=== PATIENT | male | born 1950 | race Caucasian/White ===

== ENCOUNTER 2019-01-27 12:53 | Emergency (ER) | payer MEDICARE, OTHER ==
--- NOTE | 2019-01-27 13:53 | EDM.PDOC ---
ED HPI GENERAL MEDICAL PROBLEM - General Chief Complaint: Neurological Problem Stated Complaint: NEURO ISSUES Time Seen by Provider: 01/27/19 13:35 Source of Information: Reports: Patient, Family, Old Records, RN History Limitations: Reports: No Limitations - History of Present Illness INITIAL COMMENTS - FREE TEXT/NARRATIVE: 68 yo male with muscular dystrophy presents for more frequent falls and an inability to get up when he does so. Has poor balance normally, but this seems to be an abrupt worsening. No obvious neurological deficits. Sx's for the past 2 days. They called the clinic where he is being followed for his muscular dystophy and they felt that the abrupt worsening of his balance likely was not due to his md. Mr. King says his BP is running lower than usual, but he is not light-headed when he gets up. Onset: Sudden Onset Date: 01/25/19 Duration: Day(s): (2), Constant Location: Reports: Other (no pain, poor balance only) Quality: Reports: Other (no pain) Severity: Moderate Improves with: Reports: Other (feels fine when he is not walking) Worsens with: Reports: Other (ambulation) Context: Reports: Other (see HPI, no hx of HTN, hyperlipidemia or tobacca use, does have 'Pre-diabetes') Associated Symptoms: Reports: Weakness (? 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: Other (see below) (none) - Related Data Allergies Allergy/AdvReac Type Severity Reaction Status Date / Time No Known Allergies Allergy Verified 01/27/19 13:12 Home Meds: Home Meds Acetaminophen [Tylenol] 500 mg PO BEDTIME 05/10/13 [History] Melatonin 6 mg PO BEDTIME 05/10/13 [History] Citalopram Hydrobromide [Celexa] 20 mg PO DAILY 07/20/13 [History] Omeprazole Magnesium [Prilosec Otc] 20 mg PO DAILY 05/29/14 [History] Sennosides/Docusate Sodium [Senokot-S Tablet] 1 each PO BID 05/29/14 [History] Tadalafil [Cialis] 10 mg PO ASDIRECTED PRN 05/29/14 [History] Zolpidem Tartrate 10 mg PO BEDTIME 05/29/14 [History] Gabapentin [Neurontin] 300 mg PO BID 06/01/14 [History] Aspirin [Halfprin] 81 mg PO DAILY 10/23/14 [History] Tamsulosin HCl 0.4 mg PO DAILY 01/27/19 [History] Past Medical History HEENT History: Reports: Impaired Vision Cardiovascular History: Reports: Afib Respiratory History: Reports: Sleep Apnea, SOB Other Respiratory History: BiPap Gastrointestinal History: Reports: Chronic Constipation, GERD Genitourinary History: Reports: Prostate Disorder Musculoskeletal History: Reports: Back Pain, Chronic, Muscular Dystrophy Hematologic History: Reports: B12 Deficiency Oncologic (Cancer) History: Reports: Basal Cell Carcinoma, Squamous Cell Carcinoma Dermatologic History: Reports: None - Infectious Disease History Infectious Disease History: Reports: Chicken Pox - Past Surgical History Head Surgeries/Procedures: Reports: None HEENT Surgical History: Reports: Cataract Surgery Cardiovascular Surgical History: Reports: Cardiac Ablation Respiratory Surgical History: Reports: None GI Surgical History: Reports: Appendectomy Endocrine Surgical History: Reports: None Neurological Surgical History: Reports: None Musculoskeletal Surgical History: Reports: Arthroscopic Procedure, Shoulder Surgery Oncologic Surgical History: Reports: None Dermatological Surgical History: Reports: Skin Biopsy Social & Family History - Tobacco Use Smoking Status *Q: Never Smoker Second Hand Smoke Exposure: No - Caffeine Use Caffeine Use: Reports: None - Recreational Drug Use Recreational Drug Use: No ED ROS GENERAL - Review of Systems Review Of Systems: See Below Constitutional: Reports: Weakness (? mild arm weakness bilat.) HEENT: Reports: No Symptoms Respiratory: Reports: No Symptoms Cardiovascular: Reports: No Symptoms GI/Abdominal: Reports: No Symptoms : Reports: No Symptoms Musculoskeletal: Reports: No Symptoms Skin: Reports: No Symptoms Neurological: Reports: Difficulty Walking (poor balance), Gait Disturbance ( ataxic more than usual). Denies: Confusion, Dizziness, Headache, Numbness, Paresthesia, Seizure, Syncope, Tingling, Tremors, Trouble Speaking, Change in Speech Psychiatric: Reports: No Symptoms ED EXAM, NEURO - Physical Exam Exam: See Below Exam Limited By: No Limitations General Appearance: Alert, WD/WN, No Apparent Distress Eye Exam: Bilateral Eye: Normal Inspection Ears: Normal External Exam, Normal Canal, Hearing Grossly Normal Nose: Normal Inspection, No Blood Throat/Mouth: Normal Inspection, Normal Lips, Normal Oropharynx, Normal Voice, No Airway Compromise Head Exam: Atraumatic, Normocephalic Neck: Normal Inspection Respiratory/Chest: No Respiratory Distress, Lungs Clear, Normal Breath Sounds, No Accessory Muscle Use Cardiovascular: Regular Rate, Rhythm, No Edema GI/Abdominal: Normal Bowel Sounds, Soft, Non-Tender, No Distention Neurological: Alert, Normal Mood/Affect, Normal Dorsiflexion, CN II-XII Intact, Normal Plantar Flexion, No Motor/Sensory Deficits, Oriented x 3, Abnormal Finger to Nose (past pointing finger to the nose with the R hand/arm.), Difficulty Walking (unsteady) Back Exam: Normal Inspection Extremities: Normal Inspection, Normal Range of Motion, Non-Tender, No Pedal Edema Psychiatric: Normal Affect, Normal Mood Skin Exam: Warm, Dry, Intact, No Rash, Ecchymosis (scattered bruises from recent falls.) Course - Vital Signs Text/Narrative:: Walking was minimally improved after IV fluids. Last Recorded V/S: Last Vital Signs Temp 36.3 C 01/27/19 13:29 Pulse 65 01/27/19 15:02 Resp 22 H 01/27/19 15:02 BP 129/77 01/27/19 15:02 Pulse Ox 92 L 01/27/19 13:29 Orthostatic Blood Pressure [ 109/73 Standing] Orthostatic Blood Pressure [ 119/81 Sitting] Orthostatic Blood Pressure [ 122/76 Supine] - Orders/Labs/Meds Orders: Active Orders 24 hr Category Date Time Status Orthostatic Vital Signs [RC] ASDIRECTED Care 01/27/19 13:46 Active Labs: Laboratory Tests 01/27/19 01/27/19 01/27/19 Range/Units 13:53 14:06 14:06 WBC 6.2 (4.5-11.0) K/uL RBC 4.44 (4.30-5.90) M/uL Hgb 14.3 (12.0-15.0) g/dL Hct 44.1 (40.0-54.0) % MCV 99 H (80-98) fL MCH 32 H (27-31) pg MCHC 32 (32-36) % Plt Count 169 (150-400) K/uL Sodium 145 (140-148) mmol/L Potassium 4.2 (3.6-5.2) mmol/L Chloride 109 H (100-108) mmol/L Carbon Dioxide 31 (21-32) mmol/L Anion Gap 9.2 (5.0-14.0) mmol/L BUN 20 H (7-18) mg/dL Creatinine 1.6 H (0.8-1.3) mg/dL Est Cr Clr Drug Dosing 55.76 mL/min Estimated GFR (MDRD) 43 L (>60) Glucose 125 H (74-106) mg/dL Calcium 9.3 (8.5-10.1) mg/dL Troponin I 0.024 (0.000-0.056) ng/mL Urine Color Yellow (YELLOW) Urine Appearance Clear (CLEAR) Urine pH 5.5 (5.0-8.0) Ur Specific [place] 1.025 (1.008-1.030) Urine Protein Negative (NEGATIVE) mg/dL Urine Glucose (UA) Normal (NEGATIVE) mg/dL Urine Ketones Negative (NEGATIVE) mg/dL Urine Occult Blood Negative (NEGATIVE) Urine Nitrite Negative (NEGATIVE) Urine Bilirubin Negative (NEGATIVE) Urine Urobilinogen 0.2 (0.2-1.0) EU/dL Ur Leukocyte Esterase Negative (NEGATIVE) Urine RBC Not seen (0-5) Urine WBC Not seen (0-5) Ur Epithelial Cells Not seen Amorphous Sediment Few Urine Bacteria Not seen Urine Mucus Not seen Meds: Medications Discontinued Medications Generic Name Dose Route Start Last Admin Trade Name Freq PRN Reason Stop Dose Admin Lactated Ringer's 1,000 mls @ 1,000 mls/hr 01/27/19 14:55 01/27/19 15:22 Ringers, Lactated IV 01/27/19 15:54 1,000 mls/hr BOLUS ONE Administration - Radiology Interpretation Free Text/Narrative:: Head CT scan-no acute changes CT Results Date: 01/27/19 Departure - Departure Time of Disposition: 16:35 Disposition: Home, Self-Care 01 Condition: Fair Clinical Impression: Unsteady gait - Discharge Information *PRESCRIPTION DRUG MONITORING PROGRAM REVIEWED*: No *COPY OF PRESCRIPTION DRUG MONITORING REPORT IN PATIENT KAMLESH: No Instructions: Fall Prevention in the Home, Adult, [id number] Referrals: Feliciano Brian MD [Primary Care Provider] - Forms: ED Department Discharge Additional Instructions: Continue your current meds. F/U with your neurologist as you are able. Use your walker to reduce your risk of falling. Drink enough fluids so your urine is light yellow in color, not dark. Return as needed. - My Orders Last 24 Hours: My Active Orders 01/27/19 13:46 Orthostatic Vital Signs [RC] ASDIRECTED - Assessment/Plan Last 24 Hours: My Active Orders 01/27/19 13:46 Orthostatic Vital Signs [RC] ASDIRECTED
--- NOTE | 2019-01-27 14:33 | CRLCT ---
INDICATION: Balance problems. Falls TECHNIQUE: CT head without contrast. COMPARISON: None available FINDINGS: There is cerebral and cerebellar cortical atrophy with proportionate age-related ventriculomegaly. There is no mass effect or midline shift. Mild white matter hypodensities are suggestive of chronic small vessel ischemic changes. There is no loss of newton-white differentiation. There is no evidence of an acute intracranial hemorrhage. No acute calvarial fracture is seen. The visualized paranasal sinuses and mastoid air cells are clear. Post cataract surgery changes are seen. IMPRESSION: No evidence of an acute intracranial hemorrhage, mass effect or loss of newton-white differentiation. Atrophy and mild chronic small vessel ischemic changes. Dictated by Jose Bauman MD @ 01/27/2019 2:33:06 PM Please note that all CT scans at this facility use dose modulation, iterative reconstruction, and/or weight-based dosing when appropriate to reduce radiation dose to as low as reasonably achievable. Dictated by: Jose Bauman MD @ 01/27/2019 14:33:12 (Electronically Signed)
[2019-01-27] MEDS ORDERED: Lactated Ringers 1,000 ML IV ONE (14:55)
[2019-01-27 15:03] VITALS: BP 129/77; PULSE 65
== END 2019-01-27 16:51 | disposition home or self-care (01) ==
LOC: JP.ED 12:53
DX: R26.81 Unsteadiness on feet (principal); K21.9 Gastro-esophageal reflux disease without esophagitis; Z79.82 Long term (current) use of aspirin; I48.91 Unspecified atrial fibrillation; Z79.83 Long term (current) use of bisphosphonates; Z79.899 Other long term (current) drug therapy; Z79.891 Long term (current) use of opiate analgesic
CPT/HCPCS: 36415; 70450; 80048; 81001; 84484; 85027; 96360; 99284; J7120; 99282

== ENCOUNTER 2019-09-01 12:31 | Emergency (ER) | payer MEDICARE, OTHER ==
[2019-09-01 13:05] VITALS: BP 118/73; PULSE 74
--- NOTE | 2019-09-01 13:12 | EDM.PDOC ---
ED HPI GENERAL MEDICAL PROBLEM - General Chief Complaint: General Stated Complaint: MEMORY LOSS Time Seen by Provider: 09/01/19 12:55 Source of Information: Reports: Patient, Old Records, RN History Limitations: Reports: No Limitations - History of Present Illness INITIAL COMMENTS - FREE TEXT/NARRATIVE: 68 yo male had a brief period of time yesterday that he does not remember. When family discussed this with him he is able to remember bits and pieces of the conversation. Denies LORENZO or hx of TIA/CVA. Does admit to chronic, daily use of Ambien for sleep in addition to melatonin. He skipped Ambien last night and is having no issues today. Called the clinic and was told to come to the ER. Onset: Sudden Onset Date: 08/31/19 Duration: Minutes:, Resolved Prior to Arrival Location: Reports: Head Quality: Reports: Other (no pain) Severity: Mild Improves with: Reports: Other (time) Worsens with: Reports: Other (? 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) (skipped Ambien last night) - Related Data Allergies Allergy/AdvReac Type Severity Reaction Status Date / Time No Known Allergies Allergy Verified 09/01/19 12:52 Home Meds: Home Meds Acetaminophen [Tylenol] 500 mg PO BEDTIME 05/10/13 [History] Melatonin 6 mg PO BEDTIME 05/10/13 [History] Citalopram Hydrobromide [Celexa] 20 mg PO DAILY 07/20/13 [History] Omeprazole Magnesium [Prilosec Otc] 20 mg PO DAILY 05/29/14 [History] Sennosides/Docusate Sodium [Senokot-S Tablet] 1 each PO BID 05/29/14 [History] Zolpidem Tartrate 10 mg PO BEDTIME 05/29/14 [History] tadalafiL [Cialis] 10 mg PO ASDIRECTED PRN 05/29/14 [History] Gabapentin [Neurontin] 300 mg PO BID 06/01/14 [History] Aspirin [Halfprin] 81 mg PO DAILY 10/23/14 [History] Tamsulosin HCl 0.4 mg PO DAILY 01/27/19 [History] traZODone 50 mg PO BEDTIME PRN #30 tab 09/01/19 [Rx] Past Medical History HEENT History: Reports: Impaired Vision Cardiovascular History: Reports: Afib Respiratory History: Reports: Sleep Apnea, SOB Other Respiratory History: BiPap Gastrointestinal History: Reports: Chronic Constipation, GERD Genitourinary History: Reports: Prostate Disorder Musculoskeletal History: Reports: Back Pain, Chronic, Muscular Dystrophy Hematologic History: Reports: B12 Deficiency Oncologic (Cancer) History: Reports: Basal Cell Carcinoma, Squamous Cell Carcinoma Dermatologic History: Reports: None - Infectious Disease History Infectious Disease History: Reports: Chicken Pox - Past Surgical History Head Surgeries/Procedures: Reports: None HEENT Surgical History: Reports: Cataract Surgery Cardiovascular Surgical History: Reports: Cardiac Ablation Respiratory Surgical History: Reports: None GI Surgical History: Reports: Appendectomy Endocrine Surgical History: Reports: None Neurological Surgical History: Reports: None Musculoskeletal Surgical History: Reports: Arthroscopic Procedure, Shoulder Surgery Oncologic Surgical History: Reports: None Dermatological Surgical History: Reports: Skin Biopsy Social & Family History - Tobacco Use Smoking Status *Q: Never Smoker - Caffeine Use Caffeine Use: Reports: None ED ROS GENERAL - Review of Systems Review Of Systems: See Below Constitutional: Reports: No Symptoms HEENT: Reports: No Symptoms Respiratory: Reports: No Symptoms Endocrine: Reports: No Symptoms GI/Abdominal: Reports: Constipation (mild) : Reports: No Symptoms Musculoskeletal: Reports: No Symptoms Skin: Reports: No Symptoms Neurological: Reports: Other (amnesia) ED EXAM, GENERAL - Physical Exam Exam: See Below Exam Limited By: No Limitations General Appearance: Alert, WD/WN, No Apparent Distress Eye Exam: Bilateral Eye: Normal Inspection Ears: Normal External Exam, Normal Canal, Hearing Grossly Normal, Normal TMs Ear Exam: Bilateral Ear: Auricle Normal, Canal Normal, TM normal Nose: Normal Inspection, No Blood Throat/Mouth: Normal Inspection, Normal Lips, Normal Oropharynx, Normal Voice, No Airway Compromise Head: Atraumatic, Normocephalic Neck: Normal Inspection Respiratory/Chest: No Respiratory Distress, Lungs Clear, Normal Breath Sounds, No Accessory Muscle Use Cardiovascular: Regular Rate, Rhythm, No Edema GI/Abdominal: Normal Bowel Sounds, Soft, Non-Tender, No Distention Back Exam: Normal Inspection. No: CVA Tenderness (R), CVA Tenderness (L) Extremities: Normal Inspection, Normal Range of Motion, Non-Tender, No Pedal Edema Neurological: Alert, Oriented, CN II-XII Intact, Normal Cognition, No Motor/ Sensory Deficits Psychiatric: Normal Affect, Normal Mood Skin Exam: Warm, Dry, Intact, Normal Color, No Rash Course - Vital Signs Last Recorded V/S: Last Vital Signs Temp 36.3 C 09/01/19 13:04 Pulse 74 09/01/19 13:04 Resp 14 09/01/19 13:04 BP 118/73 09/01/19 13:04 Pulse Ox 98 09/01/19 13:04 Departure - Departure Time of Disposition: 13:15 Disposition: Home, Self-Care 01 Condition: Good Clinical Impression: Transient amnesia, Chronic insomnia Constipation Qualifiers: Constipation type: slow transit constipation Qualified Code(s): K59.01 - Slow transit constipation - Discharge Information *PRESCRIPTION DRUG MONITORING PROGRAM REVIEWED*: Not Applicable *COPY OF PRESCRIPTION DRUG MONITORING REPORT IN PATIENT KAMLESH: Not Applicable Prescriptions: traZODone 50 mg PO BEDTIME PRN #30 tab PRN Reason: Insomnia Referrals: Feliciano Brian MD [Primary Care Provider] - Additional Instructions: Hold your Ambien. Take trazodone in its place to help you with sleep. Hold your Senokot, instead use Miralax(generic) twice daily to keep your bowels moving. F/ U with your provider next week for recheck. Sepsis Event Note - Evaluation Sepsis Screening Result: No Definite Risk - Focused Exam Vital Signs: Vital Signs Temp Pulse Resp BP Pulse Ox 09/01/19 13:04 36.3 C 74 14 118/73 98 Date Exam was Performed: 09/01/19 Time Exam was Performed: 13:07
== END 2019-09-01 13:20 | disposition home or self-care (01) ==
LOC: JP.ED 12:31
DX: R41.3 Other amnesia (principal); F51.04 Psychophysiologic insomnia; K59.01 Slow transit constipation; I48.91 Unspecified atrial fibrillation; K21.9 Gastro-esophageal reflux disease without esophagitis; Z79.899 Other long term (current) drug therapy
CPT/HCPCS: 99283

== ENCOUNTER 2020-12-23 06:51 | Day surgery (SDC) | payer MEDICARE ==
[2020-12-23] MEDS ORDERED: Midazolam 1 MG/ML 2 ML SDV ONE (07:20)
[2020-12-23] MEDS ORDERED: fentaNYL 100 MCG/2 ML SDV ONE (07:20)
[2020-12-23] MEDS ORDERED: Propofol 200 MG/20 ML SDV ONE (07:21)
[2020-12-23] MEDS ORDERED: Sodium Chloride 0.9% 1,000 ML IV SCH (07:30)
[2020-12-23 10:00] VITALS: BP 136/54; PULSE 65
--- NOTE | 2020-12-23 19:09 | OR ---
DATE OF PROCEDURE: 12/23/2020 SURGEON: Chevy New MD PROCEDURE: Colonoscopy. FINDINGS: Incomplete colonoscopy due to poor colon prep. COMPLICATIONS: None. MANAGER USER EXPERIENCE: None. ANESTHESIA: MAC. PREOPERATIVE DIAGNOSIS: Screening colonoscopy. POSTOPERATIVE DIAGNOSIS: Screening colonoscopy. RISKS: Risks, benefits, alternatives, and limitations including, but not limited to infection, bleeding, perforation, false positives, and false negatives were explained to the patient who wished to proceed. PROCEDURE IN DETAIL: The patient was placed in left lateral decubitus position. The colonoscope was introduced and advanced to approximately the level of transverse colon. The procedure was terminated at this point due to poor colon prep with a large amount of solid and liquid stool remaining. No abnormalities were noted. The patient tolerated the procedure well. The patient will be scheduled for repeat colonoscopy with longer prep. Chevy New MD /[id number]
== END 2020-12-23 10:36 | disposition home or self-care (01) ==
LOC: JP.SDS 06:51
PROVIDERS: ATTEND Surgery
DX: Z12.11 Encounter for screening for malignant neoplasm of colon (principal); G47.33 Obstructive sleep apnea (adult) (pediatric); I48.91 Unspecified atrial fibrillation; E78.5 Hyperlipidemia, unspecified; N18.30 Chronic kidney disease, stage 3 unspecified; Z88.8 Allergy status to other drugs, medicaments and biological substances
CPT/HCPCS: G0121; J2250; J2704; J3010; J7030

== ENCOUNTER 2021-01-30 07:17 | Day surgery (SDC) | payer MEDICARE ==
[2021-01-30] MEDS ORDERED: Sodium Chloride 0.9% 1,000 ML IV SCH (07:30)
[2021-01-30] MEDS ORDERED: Propofol 200 MG/20 ML SDV ONE (07:40)
[2021-01-30] MEDS ORDERED: fentaNYL 100 MCG/2 ML SDV ONE (07:40)
[2021-01-30] MEDS ORDERED: Midazolam 1 MG/ML 2 ML SDV ONE (08:57)
[2021-01-30 10:31] VITALS: BP 110/64; PULSE 64
--- NOTE | 2021-01-30 13:16 | OR ---
DATE OF PROCEDURE: 01/30/2021 SURGEON: Chevy New MD PROCEDURE: Colonoscopy. FINDINGS: Marginal colon prep. COMPLICATIONS: None. AGENCY DEVELOPMENT MANAGER: None. ANESTHESIA: MAC. PREOPERATIVE DIAGNOSIS: Screening colonoscopy. POSTOPERATIVE DIAGNOSIS: Screening colonoscopy. RISKS: Risks, benefits, alternatives, and limitations including but not limited to infection, bleeding, perforation, false positives, and false negatives were explained to the patient and he wished to proceed. PROCEDURE IN DETAIL: The patient was placed in left lateral decubitus position. Digital rectal exam was performed without abnormality. Scope was introduced and advanced atraumatically to the ileocecal valve. A photo was taken of the appendiceal orifice. Scope was brought back to the ascending, transverse, descending colon, and retroflexed. No evidence of old or new blood. No masses. No polyps. The prep was marginal with an approximately 85% to 90% of the luminal surface could be seen. Greater than 8 minutes was spent removing the scope. The patient tolerated the procedure well. Chevy New MD /[id number]
== END 2021-01-30 10:32 | disposition home or self-care (01) ==
LOC: JP.SDS 07:17
PROVIDERS: ATTEND Surgery
DX: Z12.11 Encounter for screening for malignant neoplasm of colon (principal); E11.22 Type 2 diabetes mellitus with diabetic chronic kidney disease; N18.9 Chronic kidney disease, unspecified; G47.33 Obstructive sleep apnea (adult) (pediatric); I48.91 Unspecified atrial fibrillation; Z88.8 Allergy status to other drugs, medicaments and biological substances
CPT/HCPCS: G0121; J2250; J2704; J3010; J7030

== ENCOUNTER 2021-02-12 19:29 | Emergency (ER) | payer MEDICARE ==
[2021-02-12] MEDS ORDERED: Bacitracin Oint 1 GM U/D Packet TOP ONE (19:53)
[2021-02-12 19:54] VITALS: BP 108/67; PULSE 67
--- NOTE | 2021-02-12 19:56 | EDM.PDOC ---
ED HPI GENERAL MEDICAL PROBLEM - General Chief Complaint: Laceration Stated Complaint: CUT ABOVE RIGHT EYE Time Seen by Provider: 02/12/21 19:51 Source of Information: Reports: Patient History Limitations: Reports: No Limitations - History of Present Illness INITIAL COMMENTS - FREE TEXT/NARRATIVE: chief complaint: laceration to right eye lid and eyebrow This is a 70 year old male presents to the ER for laceration of right eyelid and eye brow. He reports he has muscular dystrophy and fall a lot. Prior to arrival fell and cut his right eye. reports no other injury, no LOC, no pain in cheek, right eye or right forehead. immunizations are up to date. Onset: Today Duration: Hour(s):, Constant Location: Reports: Face (right eyelid and eyebrow) Quality: Reports: Other (denies pain) Severity: Mild Improves with: Reports: None Worsens with: Reports: None Context: Reports: Other (fall at home) Associated Symptoms: Reports: No Other Symptoms Treatments [employer]ENDER: Reports: Dressing(s) left eye lid Pain Score (Numeric/FACES): 4 - Related Data Allergies Allergy/AdvReac Type Severity Reaction Status Date / Time zolpidem [From Ambien] AdvReac Confusion Verified 02/12/21 19:54 Home Meds: Home Meds Acetaminophen [Tylenol] 500 mg PO BEDTIME 05/10/13 [History] Melatonin 10 mg PO BEDTIME 05/10/13 [History] Citalopram Hydrobromide [Celexa] 20 mg PO DAILY 07/20/13 [History] Omeprazole Magnesium [Prilosec Otc] 20 mg PO DAILY 05/29/14 [History] Aspirin [Halfprin] 81 mg PO DAILY 10/23/14 [History] Tamsulosin HCl 0.4 mg PO DAILY 01/27/19 [History] traZODone 50 mg PO BEDTIME PRN #30 tab 09/01/19 [Rx] Cholecalciferol (Vitamin D3) [Vitamin D] 2,000 unit PO DAILY 06/12/20 [History] Cyanocobalamin (Vitamin B-12) [Vitamin B-12] 2,000 mcg PO DAILY 10/17/20 [History] Pseudoephedrine HCl 30 mg PO DAILY PRN 10/17/20 [History] Rosuvastatin Calcium 5 mg PO DAILY 10/17/20 [History] Vit C/E/Zn/Coppr/Lutein/Zeaxan [Preservision Areds 2 Softgel] 1 each PO BID 10/17/20 [History] Finasteride 5 mg PO DAILY 12/18/20 [History] Past Medical History HEENT History: Reports: Cataract, Impaired Vision Cardiovascular History: Reports: Afib Respiratory History: Reports: Sleep Apnea, SOB Other Respiratory History: BiPap Gastrointestinal History: Reports: Chronic Constipation, GERD Genitourinary History: Reports: Prostate Disorder Musculoskeletal History: Reports: Back Pain, Chronic, Muscular Dystrophy Neurological History: Reports: CVA Psychiatric History: Reports: Anxiety Hematologic History: Reports: B12 Deficiency Oncologic (Cancer) History: Reports: Basal Cell Carcinoma, Squamous Cell Carcinoma Dermatologic History: Reports: Benign Melanoma, Melanoma, Psoriasis - Infectious Disease History Infectious Disease History: Reports: Chicken Pox, Measles, Mumps - Past Surgical History Head Surgeries/Procedures: Reports: None HEENT Surgical History: Reports: Cataract Surgery, Other (See Below) Other HEENT Surgeries/Procedures: parotid gland tumor removal, Cardiovascular Surgical History: Reports: Cardiac Ablation Respiratory Surgical History: Reports: None GI Surgical History: Reports: Appendectomy, Colonoscopy Male Surgical History: Reports: None Neurological Surgical History: Reports: None Musculoskeletal Surgical History: Reports: Amputation, Arthroscopic Procedure, Shoulder Surgery Oncologic Surgical History: Reports: None Dermatological Surgical History: Reports: Skin Biopsy Social & Family History - Caffeine Use Caffeine Use: Reports: Soda - Living Situation & Occupation 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) ED ROS GENERAL - Review of Systems Review Of Systems: See Below Constitutional: Reports: Other (lacerations to right eye) HEENT: Reports: Other (right eye lid and eyebrow lacerations) Respiratory: Reports: No Symptoms Cardiovascular: Reports: No Symptoms Musculoskeletal: Reports: No Symptoms Skin: Reports: Wound (right eye lacerations) Neurological: Reports: Pre-Existing Deficit Psychiatric: Reports: No Symptoms Hematologic/Lymphatic: Reports: No Symptoms Immunologic: Reports: No Symptoms ED EXAM, SKIN/RASH Exam: See Below Exam Limited By: No Limitations General Appearance: Alert, WD/WN, No Apparent Distress Eye Exam: Right Eye: Other (laceration x 2 eyelid and eyebrow) Ears: Normal External Exam Nose: Normal Inspection Throat/Mouth: Normal Inspection Head: Other (right eyelid and right eyebrow lacerations) Neck: Normal Inspection, Supple, Non-Tender, Full Range of Motion Respiratory/Chest: No Respiratory Distress Extremities: Normal Inspection Neurological: Alert, Oriented, Other (Muscular Dystrophy) Psychiatric: Normal Affect, Normal Mood Skin: Warm, Dry, Wound/Incision (right eyebrow and right eyelid) Location, Skin: Face Characteristics: Linear Lymphatic: No Adenopathy ED SKIN PROCEDURES - Laceration/Wound Repair Right Lower Other Appearance: Subcutaneous, Linear, Clean, Other (right upper eyelid) Distal NVT: Neuro & Vascular Intact, No Tendon Injury Anesthetic Type: Local Local Anesthesia - Lidocaine (Xylocaine): 1% Plain Local Anesthetic Volume: 2cc Skin Prep: Chlorhexidine (Hibiciens), Saline Closed with: Sutures Lac/Wound length In cm: 2 Suture Size: 5-0 # of Sutures: 6 Suture Type: Prolene, Interrupted, Simple Tetanus Status Addressed: Yes (Tdap given at today's ER visit) Complications: No Right Upper Other Appearance: Subcutaneous, Linear, Clean, Other (right lower eyelid) Distal NVT: Neuro & Vascular Intact, No Tendon Injury Anesthetic Type: Local Local Anesthesia - Lidocaine (Xylocaine): 1% Plain Local Anesthetic Volume: 1cc Skin Prep: Chlorhexidine (Hibiciens), Saline Exploration/Debridement/Repair: Wound Explored Closed with: Sutures Lac/Wound length In cm: 1 Suture Size: 5-0 # of Sutures: 3 Suture Type: Prolene, Interrupted, Simple Tetanus Status Addressed: Yes Complications: No Course - Vital Signs Last Recorded V/S: Last Vital Signs Temp 97.2 F 02/12/21 19:58 Pulse 67 02/12/21 19:58 Resp 16 02/12/21 19:58 BP 108/67 02/12/21 19:58 Pulse Ox 98 02/12/21 19:58 - Orders/Labs/Meds Orders: Active Orders 24 hr Category Date Time Status Vaccines to be Administered [RC] PER UNIT ROUTINE Care 02/12/21 20:22 Active Meds: Medications Discontinued Medications Generic Name Dose Route Start Last Admin Trade Name Freq PRN Reason Stop Dose Admin Bacitracin 1 dose 02/12/21 19:53 02/12/21 20:19 Bacitracin Oint 1 Gm U/D Packet TOP 02/12/21 19:54 1 dose ONETIME ONE Administration Diphtheria/Tetanus/Acell Pertussis 0.5 ml 02/12/21 20:21 02/12/21 20:31 Diphtheria,Pertussis(Acell),Tetanus Vaccine 0.5 Ml Syringe IM 02/12/21 20:22 0.5 ml .ONCE ONE Administration Lidocaine HCl 5 ml 02/12/21 19:52 02/12/21 20:19 Lidocaine 1% 5 Ml Sdv INJECT 02/12/21 19:53 5 ml ONETIME ONE Administration - Re-Assessments/Exams Free Text/Narrative Re-Assessment/Exam: 02/12/21 20:37 laceration repair to right eyelid lacerations x 2 wound care discussed follow up discussed Tdap given in ER Mr. King agrees with plan of care. Departure - Departure Time of Disposition: 20:38 Disposition: Home, Self-Care 01 Condition: Good Clinical Impression: Laceration, eyelid, right Qualifiers: Encounter type: initial encounter Qualified Code(s): S01.111A - Laceration w ithout foreign body of right eyelid and periocular area, initial encounter Laceration of right eyebrow Qualifiers: Encounter type: initial encounter Qualified Code(s): S01.111A - Laceration without foreign body of right eyelid and periocular area, initial encounter - Discharge Information *PRESCRIPTION DRUG MONITORING PROGRAM REVIEWED*: No *COPY OF PRESCRIPTION DRUG MONITORING REPORT IN PATIENT KAMLESH: No Instructions: Laceration Care, Adult, [id number] Referrals: Feliciano Brian MD [Primary Care Provider] - Forms: ED Department Discharge Care Plan Goals: Laceration of right eyebrow and right eyelid -sutures X6 and sutures X3 -suture removal in 5 to 7 days -monitor for signs of infection -return to ER for any signs of infection-redness, pain, discharge, not healing, edema or any concerns. Sepsis Event Note (ED) - Focused Exam Vital Signs: Vital Signs Temp Pulse Resp BP Pulse Ox 02/12/21 19:58 97.2 F 67 16 108/67 98 02/12/21 19:53 97.2 F 67 16 108 98 - Problem List & Annotations (1) Laceration of right eyebrow SNOMED Code(s): 70669458902828363 Code(s): S01.111A - LACERATION W/O FB OF RIGHT EYELID AND PERIOCULAR AREA, INIT Status: Acute Priority: High Current Visit: Yes Qualifiers: Encounter type: initial encounter Qualified Code(s): S01.111A - Laceration without foreign body of right eyelid and periocular area, initial encounter (2) Laceration, eyelid, right SNOMED Code(s): 63549636363544072 Code(s): S01.111A - LACERATION W/O FB OF RIGHT EYELID AND PERIOCULAR AREA, INIT Status: Acute Priority: High Current Visit: Yes Qualifiers: Encounter type: initial encounter Qualified Code(s): S01.111A - Laceration without foreign body of right eyelid and periocular area, initial encounter - Problem List Review Problem List Initiated/Reviewed/Updated: Yes - My Orders Last 24 Hours: My Active Orders 02/12/21 20:22 Vaccines to be Administered [RC] PER UNIT ROUTINE - Assessment/Plan Last 24 Hours: My Active Orders 02/12/21 20:22 Vaccines to be Administered [RC] PER UNIT ROUTINE Plan: Laceration of right eyebrow and right eyelid -sutures X6 and sutures X3 -suture removal in 5 to 7 days -apply bacitracin ointment or antibiotic ointment daily til healed -monitor for signs of infection -return to ER for any signs of infection-redness, pain, discharge, not healing, edema or any concerns.
[2021-02-12] MEDS ORDERED: Diphtheria,Pertussis(Acell),Tetanus Vaccine 0.5 ML Syringe IM ONE (20:21)
== END 2021-02-12 20:46 | disposition home or self-care (01) ==
LOC: JP.ED 19:29
DX: S01.111A Laceration without foreign body of right eyelid and periocular area, initial encounter (principal); K21.9 Gastro-esophageal reflux disease without esophagitis; Z79.899 Other long term (current) drug therapy; Z86.73 Personal history of transient ischemic attack (TIA), and cerebral infarction without residual deficits; Z79.82 Long term (current) use of aspirin; Z23 Encounter for immunization; W26.8XXA Contact with other sharp object(s), not elsewhere classified, initial encounter
CPT/HCPCS: 12013; 90471; 90715; 99282-25

== ENCOUNTER 2022-05-23 02:24 | Emergency (ER) | payer MEDICARE ==
[2022-05-23] MEDS ORDERED: Lidocaine 1% with EPINEPHrine 1:100,000 50 ML MDV INFILT STA (02:30)
[2022-05-23 02:36] VITALS: BP 116/83; PULSE 95
[2022-05-23] MEDS ORDERED: Bacitracin Oint 1 GM U/D Packet TOP ONE (03:06)
== END 2022-05-23 03:24 | disposition home or self-care (01) ==
LOC: JP.ED 02:24
DX: S51.012A Laceration without foreign body of left elbow, initial encounter (principal); Z88.8 Allergy status to other drugs, medicaments and biological substances; Z79.899 Other long term (current) drug therapy; Z79.82 Long term (current) use of aspirin; Z90.49 Acquired absence of other specified parts of digestive tract; W18.39XA Other fall on same level, initial encounter
CPT/HCPCS: 12002; 99282

== ENCOUNTER 2022-05-23 21:09 | Emergency (ER) | payer MEDICARE ==
[2022-05-23 21:23] VITALS: BP 137/77; PULSE 80
== END 2022-05-23 22:24 | disposition home or self-care (01) ==
LOC: JP.ED 21:09
DX: L03.114 Cellulitis of left upper limb (principal); Z79.899 Other long term (current) drug therapy; Z79.82 Long term (current) use of aspirin; Z90.49 Acquired absence of other specified parts of digestive tract; W19.XXXA Unspecified fall, initial encounter
CPT/HCPCS: 99283

== ENCOUNTER 2022-05-28 02:04 | Emergency (ER) | payer MEDICARE ==
[2022-05-28 02:16] VITALS: BP 149/91; PULSE 64
== END 2022-05-28 03:56 | disposition home or self-care (01) ==
LOC: JP.ED 02:04
DX: S70.02XA Contusion of left hip, initial encounter (principal); S70.12XA Contusion of left thigh, initial encounter; I48.91 Unspecified atrial fibrillation; K21.9 Gastro-esophageal reflux disease without esophagitis; Z86.73 Personal history of transient ischemic attack (TIA), and cerebral infarction without residual deficits; Z88.8 Allergy status to other drugs, medicaments and biological substances; Z79.82 Long term (current) use of aspirin; Z79.899 Other long term (current) drug therapy; W18.30XA Fall on same level, unspecified, initial encounter
CPT/HCPCS: 72192; 99284

== ENCOUNTER → 2022-09-08 | Day surgery (SDC) | payer MEDICARE ==
[~2022-09-08] MED LIST: Acetaminophen 500 MG Tab PO ONE; Bacitracin Oint 1 GM U/D Packet ONE; Bupivacaine 0.5% 50 ML MDV ONE; Dextrose 5%-Lactated Ringers 1,000 ML IV SCH; Ketamine 25 MG in Sodium Chloride 0.9% 19.75 ML IV SCH; Ketamine 500 MG/5 ML MDV IV SCH; Lidocaine 1% with EPINEPHrine 1:100,000 50 ML MDV ONE; Linezolid 600 MG in Premix Bag 1 BAG IV ONE; Linezolid 600 MG/300 ML Premix Bag IRR ONE; Midazolam 1 MG/ML 2 ML SDV ONE; Propofol 200 MG/20 ML SDV ONE; fentaNYL 100 MCG/2 ML SDV ONE
[2022-09-08 10:04] VITALS: BP 108/65; PULSE 54
== END ==
LOC: JP.SDS 05:32
PROVIDERS: ATTEND Surgery
DX: L72.0 Epidermal cyst (principal); L08.89 Other specified local infections of the skin and subcutaneous tissue; M79.89 Other specified soft tissue disorders; G47.33 Obstructive sleep apnea (adult) (pediatric); I48.91 Unspecified atrial fibrillation; R73.03 Prediabetes; N18.30 Chronic kidney disease, stage 3 unspecified; Z88.8 Allergy status to other drugs, medicaments and biological substances
CPT/HCPCS: 11422; 11423; 12042; 87070; 87075; 87077; 87186; 87205; 88304; A9270; J2020; J2250; J2704; J3010; J3490; J7121

== ENCOUNTER 2022-11-23 02:24 | Inpatient (IN) | payer MEDICARE ==
[2022-11-23] MEDS ORDERED: Sodium Chloride 0.9% 1,000 ML IV SCH (02:45)
[2022-11-23 02:46] LABS: BASOPHILS ABSOLUTE AUTO 0.04 K/uL (0.00-0.10); BASOPHILS PERCENT AUTO 0.5 % (0.1-1.3); EOSINOPHILS ABSOLUTE AUTO 0.07 K/uL (0.00-0.40); EOSINOPHILS PERCENT AUTO 0.8 % (0.0-5.4); HEMATOCRIT 42.9 % (38.4-49.7); HEMOGLOBIN 14.3 g/dL (12.9-16.9); IMMATURE GRAN ABSOLUTE AUTO 0.03 K/uL (0.00-0.23); IMMATURE GRAN PERCENT AUTO 0.3 % (0.0-0.7); LYMPHOCYTES ABSOLUTE AUTO 1.03 K/uL (0.8-3.3); LYMPHOCYTES PERCENT AUTO 11.9 % (11.4-47.7); MEAN CORPUSCULAR HEMOGLOBIN 33.6 pg (31.6-35.5); MEAN CORPUSCULAR HGB CONC 33.3 g/dL (31.6-35.5); MEAN CORPUSCULAR VOLUME 100.9 fL (81.4-99.0); MONOCYTES ABSOLUTE AUTO 0.51 K/uL (0.20-0.90); MONOCYTES PERCENT AUTO 5.9 % (3.3-12.6); NEUTROPHILS ABSOLUTE AUTO 6.94 K/uL (1.0-7.6); NEUTROPHILS PERCENT AUTO 80.6 % (40.0-78.1); PLATELET COUNT,PLT 154 K/uL (130-375); RED BLOOD CELL COUNT 4.25 M/uL (4.14-5.76); WHITE BLOOD CELL COUNT,WBC 8.6 K/uL (3.2-11.0)
[2022-11-23 03:03] LABS: ALANINE AMINOTRANSFERASE,ALT 21 U/L (12-78); ALBUMIN 3.4 g/dL (3.4-5.0); ALKALINE PHOSPHATASE 72 U/L (46-116); ANION GAP 14.5 mmol/L (5.0-14.0); ASPARTATE AMNIOTRANSFERASE,AST 26 U/L (15-37); BILIRUBIN TOTAL 0.8 mg/dL (0.2-1.0); BLOOD UREA NITROGEN,BUN 16 mg/dL (7-18); CALCIUM 9.5 mg/dL (8.5-10.1); CARBON DIOXIDE,CO2 27 mmol/L (21-32); CHLORIDE,CL 105 mmol/L (100-108); CREATININE 1.3 mg/dL (0.8-1.3); EST CRCL DRUG DOSING (CG) 65.84 mL/min; ESTIMATED GFR 59 mL/min (>60); GLUCOSE RANDOM 153 mg/dL (74-106); POTASSIUM,K 3.5 mmol/L (3.6-5.2); PROTEIN TOTAL,TP 6.8 g/dL (6.4-8.2); SODIUM,NA 143 mmol/L (140-148)
[2022-11-23] MEDS ORDERED: Meropenem 1 GM in Sodium Chloride 0.9% 100 ML IV ONE (03:38)
[2022-11-23] MEDS ORDERED: LORazepam 2 MG/ML SDV IVPUSH ONE (03:43)
[2022-11-23 03:48] LABS: APPEARANCE,URINE CLEAR (CLEAR); BILIRUBIN,URINE NEGATIVE (NEGATIVE); COLOR,URINE YELLOW (YELLOW); GLUCOSE,URINE NEGATIVE (NEGATIVE); KETONES,URINE NEGATIVE (NEGATIVE); LEUKOCYTE ESTERASE,URINE NEGATIVE (NEGATIVE); NITRITE,URINE NEGATIVE (NEGATIVE); OCCULT BLOOD,URINE NEGATIVE (NEGATIVE); PROTEIN,URINE NEGATIVE (NEGATIVE); UROBILINOGEN,URINE 0.2 EU/dL (0.2-1.0)
[2022-11-23] MEDS ORDERED: Lidocaine 2% Jelly 10 ML Urojet MUCMEM ONE (04:00)
[2022-11-23] MEDS ORDERED: Albuterol/Ipratropium 3.0-0.5 MG/3 ML Neb Soln NEB ONE (04:20)
[2022-11-23 04:57] LABS: RBC,URINE 0-5 (0-5); WBC,URINE 0-5 (0-5)
[2022-11-23 04:58] LABS: AMORPHOUS SEDIMENT,URINE NOT SEEN; BACTERIA,URINE FEW; EPITHELIAL CELLS,URINE RARE; MUCUS,URINE NOT SEEN
[2022-11-23] MEDS ORDERED: Magnesium Hydroxide 400 MG/5 ML Susp 30 ML Cup PO PRN (05:07)
[2022-11-23] MEDS ORDERED: Enoxaparin 40 MG/0.4 ML Syringe SUBCUT SCH (05:07)
[2022-11-23] MEDS ORDERED: Potassium Chloride 10 MEQ in Premix Bag 1 BAG IV SCH (05:07)
[2022-11-23] MEDS ORDERED: Ondansetron 4 MG/2 ML SDV IV PRN (05:07)
[2022-11-23] MEDS ORDERED: Ondansetron 4 MG Tab.DIS PO PRN (05:07)
[2022-11-23] MEDS ORDERED: Albuterol/Ipratropium 3.0-0.5 MG/3 ML Neb Soln NEB SCH (06:00)
[2022-11-23] MEDS ORDERED: Meropenem 1 GM in Sodium Chloride 0.9% 100 ML IV SCH (06:00)
[2022-11-23] MEDS: Sodium Chloride 0.9% 1,000 ML IV SCH ×2 (06:15→18:28)
[2022-11-23] MEDS: Acetaminophen 325 MG Tab PO PRN (08:10)
[2022-11-23] MEDS: Albuterol 0.083% 2.5 MG/3 ML Neb Soln NEB PRN (08:22)
[2022-11-23] MEDS: Potassium Chloride 10 MEQ in Premix Bag 1 BAG IV SCH ×2 (09:06→11:14)
[2022-11-23] MEDS ORDERED: Meropenem 500 MG in Sodium Chloride 0.9% 50 ML IV SCH (10:00)
[2022-11-23] MEDS ORDERED: Atropine Sulfate Ophth 2 ML Drops SL PRN (10:27)
[2022-11-23] MEDS: Albuterol/Ipratropium 3.0-0.5 MG/3 ML Neb Soln NEB SCH ×3 (11:00→20:43)
[2022-11-23] MEDS: Meropenem 1 GM in Sodium Chloride 0.9% 100 ML IV SCH ×2 (12:43→20:43)
[2022-11-23] MEDS ORDERED: Haloperidol 1 MG Tab PO ONE (12:45)
[2022-11-24] MEDS: Sodium Chloride 0.9% 1,000 ML IV SCH (03:03)
[2022-11-24] MEDS: Acetaminophen 325 MG Tab PO PRN ×2 (04:07→21:32)
[2022-11-24] MEDS: Meropenem 1 GM in Sodium Chloride 0.9% 100 ML IV SCH ×3 (04:10→20:13)
[2022-11-24] MEDS: Albuterol/Ipratropium 3.0-0.5 MG/3 ML Neb Soln NEB SCH ×4 (07:02→21:33)
[2022-11-24] MEDS: Lactulose Soln 10 GM/15 ML 15 ML UD Cup PO SCH (20:13)
[2022-11-25] MEDS: Melatonin 3 MG Tab PO PRN ×2 (01:40→20:29)
[2022-11-25] MEDS: Albuterol 0.083% 2.5 MG/3 ML Neb Soln NEB PRN (03:50)
[2022-11-25] MEDS: Meropenem 1 GM in Sodium Chloride 0.9% 100 ML IV SCH ×2 (04:09→11:22)
[2022-11-25] MEDS: Albuterol/Ipratropium 3.0-0.5 MG/3 ML Neb Soln NEB SCH ×4 (07:00→20:29)
[2022-11-25] MEDS: Lactulose Soln 10 GM/15 ML 15 ML UD Cup PO SCH ×2 (08:14→20:29)
[2022-11-25 11:28] LABS: CALCIUM 9.1 mg/dL (8.5-10.1); CREATININE 1.1 mg/dL (0.8-1.3); EST CRCL DRUG DOSING (CG) 77.81 mL/min; POTASSIUM,K 3.9 mmol/L (3.6-5.2)
[2022-11-25 11:29] LABS: ANION GAP 8.9 mmol/L (5.0-14.0)
[2022-11-25] MEDS: Tamsulosin 0.4 MG Cap.ER PO SCH (12:04)
[2022-11-25] MEDS: Piperacillin/Tazobactam/Dext 3.375 GM in Premix Bag 1 BAG IV SCH ×2 (14:01→20:29)
[2022-11-25] MEDS ORDERED: Finasteride 5 MG Tab PO SCH (21:00)
[2022-11-25] MEDS ORDERED: traZODone 50 MG Tab PO ONE (23:41)
[2022-11-26] MEDS: Piperacillin/Tazobactam/Dext 3.375 GM in Premix Bag 1 BAG IV SCH ×2 (02:08→08:38)
[2022-11-26] MEDS: Albuterol/Ipratropium 3.0-0.5 MG/3 ML Neb Soln NEB SCH ×2 (06:55→10:34)
[2022-11-26] MEDS: Lactulose Soln 10 GM/15 ML 15 ML UD Cup PO SCH (08:38)
[2022-11-26] MEDS: Tamsulosin 0.4 MG Cap.ER PO SCH (08:38)
[2022-11-26 13:34] VITALS: BP 132/80; PULSE 76
== END 2022-11-26 13:40 | disposition home or self-care (01) | DRG 391 ==
LOC: JP.ED 02:24 → JP.MS 04:07
PROVIDERS: ADMIT Internal Medicine; ATTEND Internal Medicine
PROC: 0D9670Z Drainage of Stomach with Drainage Device, Via Natural or Artificial Opening (ICD-10-PCS; principal; 2022-11-23)
DX: K59.09 Other constipation (principal); J69.0 Pneumonitis due to inhalation of food and vomit; H54.7 Unspecified visual loss; Z66 Do not resuscitate; Z51.5 Encounter for palliative care; Z20.822 Contact with and (suspected) exposure to COVID-19; K21.9 Gastro-esophageal reflux disease without esophagitis; M54.9 Dorsalgia, unspecified; G89.29 Other chronic pain; F41.9 Anxiety disorder, unspecified; G35 Multiple sclerosis; E87.6 Hypokalemia; G71.11 Myotonic muscular dystrophy; I48.0 Paroxysmal atrial fibrillation; E78.5 Hyperlipidemia, unspecified; Z90.49 Acquired absence of other specified parts of digestive tract; Z79.82 Long term (current) use of aspirin; Z79.899 Other long term (current) drug therapy; Z98.49 Cataract extraction status, unspecified eye
CPT/HCPCS: 36415; 43752; 71045; 71045-26; 71046; 71046-26; 74176; 74270; 74270-26; 80048; 80053; 81001; 83605; 83735; 84145; 85025; 87040; 92610-GN; 94640; 94667; 94668; 96361; 96365; 96375; 97162-GP; 97165-GO; 97535-GP; 99285-25; A9270-GY; J2060; J2185; J2543; J3480; J3490; J7030; J7620; U0002

== ENCOUNTER 2023-06-02 07:10 | Emergency (ER) | payer MEDICARE ==
[2023-06-02 08:31] LABS: BASOPHILS ABSOLUTE AUTO 0.03 K/uL (0.00-0.10); BASOPHILS PERCENT AUTO 0.4 % (0.1-1.3); EOSINOPHILS ABSOLUTE AUTO 0.07 K/uL (0.00-0.40); EOSINOPHILS PERCENT AUTO 0.9 % (0.0-5.4); HEMATOCRIT 38.9 % (38.4-49.7); HEMOGLOBIN 13.1 g/dL (12.9-16.9); IMMATURE GRAN PERCENT AUTO 0.3 % (0.0-0.7); LYMPHOCYTES ABSOLUTE AUTO 1.16 K/uL (0.8-3.3); LYMPHOCYTES PERCENT AUTO 14.8 % (11.4-47.7); MEAN CORPUSCULAR HEMOGLOBIN 32.3 pg (31.6-35.5); MEAN CORPUSCULAR HGB CONC 33.7 g/dL (31.6-35.5); MEAN CORPUSCULAR VOLUME 95.8 fL (81.4-99.0); MONOCYTES ABSOLUTE AUTO 0.63 K/uL (0.20-0.90); NEUTROPHILS ABSOLUTE AUTO 5.92 K/uL (1.0-7.6); NEUTROPHILS PERCENT AUTO 75.6 % (40.0-78.1); PLATELET COUNT,PLT 167 K/uL (130-375); RED BLOOD CELL COUNT 4.06 M/uL (4.14-5.76); WHITE BLOOD CELL COUNT,WBC 7.8 K/uL (3.2-11.0)
[2023-06-02 08:34] LABS: IMMATURE GRAN ABSOLUTE AUTO 0.02 K/uL (0.00-0.23)
[2023-06-02 08:53] LABS: ALANINE AMINOTRANSFERASE,ALT 20 U/L (12-78); ALBUMIN 2.8 g/dL (3.4-5.0); ALKALINE PHOSPHATASE 62 U/L (46-116); ASPARTATE AMNIOTRANSFERASE,AST 57 U/L (15-37); BILIRUBIN TOTAL 1.5 mg/dL (0.2-1.0); BLOOD UREA NITROGEN,BUN 31 mg/dL (7-18); CARBON DIOXIDE,CO2 28 mmol/L (21-32); CHLORIDE,CL 109 mmol/L (100-108); CREATININE 1.9 mg/dL (0.8-1.3); EST CRCL DRUG DOSING (CG) 44.42 mL/min; ESTIMATED GFR 37 mL/min (>60); GLUCOSE RANDOM 106 mg/dL (74-106); POTASSIUM,K 3.9 mmol/L (3.6-5.2); PROTEIN TOTAL,TP 5.7 g/dL (6.4-8.2); SODIUM,NA 143 mmol/L (140-148)
[2023-06-02 08:55] LABS: ANION GAP 9.9 mmol/L (5.0-14.0)
[2023-06-02 09:32] LABS: APPEARANCE,URINE CLEAR (CLEAR); BILIRUBIN,URINE NEGATIVE (NEGATIVE); COLOR,URINE YELLOW (YELLOW); GLUCOSE,URINE NEGATIVE (NEGATIVE); KETONES,URINE NEGATIVE (NEGATIVE); LEUKOCYTE ESTERASE,URINE TRACE (NEGATIVE); NITRITE,URINE NEGATIVE (NEGATIVE); OCCULT BLOOD,URINE NEGATIVE (NEGATIVE); PH,URINE 5.5 (5.0-8.0); PROTEIN,URINE NEGATIVE (NEGATIVE); UROBILINOGEN,URINE 0.2 EU/dL (0.2-1.0)
[2023-06-02 10:26] LABS: AMORPHOUS SEDIMENT,URINE NOT SEEN; BACTERIA,URINE NOT SEEN; EPITHELIAL CELLS,URINE RARE; MUCUS,URINE NOT SEEN; RBC,URINE 0-5 (0-5)
[2023-06-02 13:10] VITALS: BP 117/79; PULSE 71
== END 2023-06-02 13:15 | disposition home or self-care (01) ==
LOC: JP.ED 07:10
DX: G71.11 Myotonic muscular dystrophy (principal); R29.6 Repeated falls; I48.91 Unspecified atrial fibrillation; K21.9 Gastro-esophageal reflux disease without esophagitis; Z88.5 Allergy status to narcotic agent; Z79.82 Long term (current) use of aspirin; Z79.899 Other long term (current) drug therapy
CPT/HCPCS: 36415; 70450; 70450-26; 730802650; 73080-50; 73502-26-LT; 73502-LT; 80053; 81001; 84484; 85025; 93005; 99284

== ENCOUNTER 2023-08-06 17:29 | Emergency (ER) | payer MEDICARE ==
[2023-08-06 17:55] VITALS: BP 111/64; PULSE 79
[2023-08-06 18:31] LABS: BASOPHILS PERCENT AUTO 0.2 % (0.1-1.3); EOSINOPHILS PERCENT AUTO 0.1 % (0.0-5.4); HEMATOCRIT 34.5 % (38.4-49.7); HEMOGLOBIN 11.3 g/dL (12.9-16.9); IMMATURE GRAN ABSOLUTE AUTO 0.05 K/uL (0.00-0.23); IMMATURE GRAN PERCENT AUTO 0.5 % (0.0-0.7); LYMPHOCYTES ABSOLUTE AUTO 0.64 K/uL (0.8-3.3); LYMPHOCYTES PERCENT AUTO 6.1 % (11.4-47.7); MEAN CORPUSCULAR HEMOGLOBIN 32.2 pg (31.6-35.5); MEAN CORPUSCULAR HGB CONC 32.8 g/dL (31.6-35.5); MEAN CORPUSCULAR VOLUME 98.3 fL (81.4-99.0); MONOCYTES ABSOLUTE AUTO 0.91 K/uL (0.20-0.90); MONOCYTES PERCENT AUTO 8.7 % (3.3-12.6); NEUTROPHILS ABSOLUTE AUTO 8.85 K/uL (1.0-7.6); NEUTROPHILS PERCENT AUTO 84.4 % (40.0-78.1); PLATELET COUNT,PLT 153 K/uL (130-375); RED BLOOD CELL COUNT 3.51 M/uL (4.14-5.76); WHITE BLOOD CELL COUNT,WBC 10.5 K/uL (3.2-11.0)
[2023-08-06] MEDS: Sodium Chloride 0.9% 1,000 ML IV SCH (18:32)
[2023-08-06 18:33] LABS: BASOPHILS ABSOLUTE AUTO 0.02 K/uL (0.00-0.10); EOSINOPHILS ABSOLUTE AUTO 0.01 K/uL (0.00-0.40)
[2023-08-06 19:02] LABS: A/G RATIO 0.9 (1.2-2.2); ALANINE AMINOTRANSFERASE,ALT 21 U/L (12-78); ALBUMIN 2.9 g/dL (3.4-5.0); ALKALINE PHOSPHATASE 67 U/L (46-116); ANION GAP 6.7 mmol/L (5.0-14.0); ASPARTATE AMNIOTRANSFERASE,AST 30 U/L (15-37); BILIRUBIN TOTAL 1.2 mg/dL (0.2-1.0); BLOOD UREA NITROGEN,BUN 33 mg/dL (7-18); CALCIUM 8.5 mg/dL (8.5-10.1); CARBON DIOXIDE,CO2 29 mmol/L (21-32); CHLORIDE,CL 107 mmol/L (100-108); CREATININE 1.8 mg/dL (0.8-1.3); EST CRCL DRUG DOSING (CG) 46.88 mL/min; ESTIMATED GFR 40 mL/min (>60); GLUCOSE RANDOM 114 mg/dL (74-106); POTASSIUM,K 3.8 mmol/L (3.6-5.2); PROTEIN TOTAL,TP 6.1 g/dL (6.4-8.2); SODIUM,NA 143 mmol/L (140-148)
== END 2023-08-06 20:41 | disposition home or self-care (01) ==
LOC: JP.ED 17:29
DX: E86.0 Dehydration (principal); S70.01XA Contusion of right hip, initial encounter; R19.7 Diarrhea, unspecified; E78.00 Pure hypercholesterolemia, unspecified; K21.9 Gastro-esophageal reflux disease without esophagitis; Z79.82 Long term (current) use of aspirin; Z79.899 Other long term (current) drug therapy; Z88.8 Allergy status to other drugs, medicaments and biological substances; W01.0XXA Fall on same level from slipping, tripping and stumbling without subsequent striking against object, initial encounter
CPT/HCPCS: 36415; 73502; 80053; 83605; 85025; 96360; 99285; J7030

== ENCOUNTER 2023-10-05 15:57 | Emergency (ER) | payer MEDICARE ==
[2023-10-05] MEDS ORDERED: Naloxone 0.4 MG/ML SDV IVPUSH PRN (16:04)
[2023-10-05] MEDS: Sodium Chloride 0.9% 1,000 ML IV ONE (16:50)
[2023-10-05] MEDS: HYDROmorphone 1 MG/ML Syringe IVPUSH PRN (16:51)
[2023-10-05 17:56] VITALS: BP 136/81; PULSE 65
== END 2023-10-05 20:23 | disposition other institution (70) ==
LOC: JP.ED 15:57
DX: S82.201A Unspecified fracture of shaft of right tibia, initial encounter for closed fracture (principal); R29.6 Repeated falls; E78.00 Pure hypercholesterolemia, unspecified; K21.9 Gastro-esophageal reflux disease without esophagitis; Z90.49 Acquired absence of other specified parts of digestive tract; Z79.82 Long term (current) use of aspirin; Z79.899 Other long term (current) drug therapy; Z88.8 Allergy status to other drugs, medicaments and biological substances; X50.0XXA Overexertion from strenuous movement or load, initial encounter
CPT/HCPCS: 29505; 73590; 73610; 96361; 96374; 99284; J1170; J7030; 99285